=== PATIENT | male | born 1985 | race Caucasian/White ===

== ENCOUNTER 2020-01-30 21:56 | Emergency (ER) | payer BC ==
[~2020-01-30] VITALS: Ht 365.8 cm; Wt 93.2 kg
[2020-01-30] MEDS ORDERED: penicillin V potassium 500mg tablet PO ONE (22:15)
[2020-01-30] MEDS ORDERED: PENI500T2 PO (22:16)
[2020-01-30 22:20] VITALS: BP 166/95
== END 2020-01-30 22:22 | disposition home or self-care (01) ==
LOC: ER 21:57
DX: J02.0 Streptococcal pharyngitis (principal); Z72.89 Other problems related to lifestyle; Z79.2 Long term (current) use of antibiotics
CPT/HCPCS: 99283

== ENCOUNTER 2021-06-17 12:51 | Emergency (ER) | payer BC, OTHER ==
[~2021-06-17] VITALS: Ht 188 cm; Wt 95.5 kg
[2021-06-17 13:23] VITALS: BP 130/70
[2021-06-17] MEDS ORDERED: LIDOcaine 1% 30ml preserv. free vial IJ ONE (13:40)
== END 2021-06-17 14:59 | disposition home or self-care (01) ==
LOC: ER 12:52
DX: S61.215A Laceration without foreign body of left ring finger without damage to nail, initial encounter (principal); Z72.89 Other problems related to lifestyle; W25.XXXA Contact with sharp glass, initial encounter; Y93.89 Activity, other specified; Y92.89 Other specified places as the place of occurrence of the external cause; Y99.8 Other external cause status
CPT/HCPCS: 12001; 73140; 99283